=== PATIENT | female | born 1965 | race Caucasian/White ===

== ENCOUNTER 2017-01-05 21:08 | Emergency (ER) | payer BC, MEDICARE ==
--- NOTE | 2017-01-05 21:26 | EDM.PDOC ---
ED HPI GENERAL MEDICAL PROBLEM - General Chief Complaint: Abdominal Pain Stated Complaint: PT HAS STOMACH PAINS Time Seen by Provider: 01/05/17 21:20 Source of Information: Reports: Patient History Limitations: Reports: No Limitations - History of Present Illness INITIAL COMMENTS - FREE TEXT/NARRATIVE: HISTORY AND PHYSICAL: History of present illness: [Patient comes the emergency room complaining of lower abdominal pressure as well as tissue protruding from her vagina. Her period started 2 days ago and is regular. This evening she went to put in a tampon and noticed tissue coming out of her vagina. She is complaining of some lower abdominal cramping and pressure as well as some low back pressure. She's had no fever or chills, nausea or vomiting, and other abdominal pain. No burning with urination urinary frequency or urgency. Bowel movements are normal and without blood. She has not recently been constipated or had to strain to have a bowel movement. Had a tubal ligation approximately 20 years ago. LC2] Review of systems: As per history of present illness and below otherwise all systems reviewed and negative. Past medical history: As per history of present illness and as reviewed below otherwise noncontributory. Surgical history: As per history of present illness and as reviewed below otherwise noncontributory. Social history: No reported history of drug or alcohol abuse. Family history: As per history of present illness and as reviewed below otherwise noncontributory. Physical exam: HEENT: Atraumatic, normocephalic. Lungs: Clear to auscultation, breath sounds equal bilaterally Heart: S1S2, regular rate and rhythm. Abdomen: Soft, nondistended. Mildly tender over suprapubic area. No CVA tenderness. Pelvis: Stable nontender. Genitourinary: Normal-appearing external genitalia. Normal amount of blood present in vaginal vault. Cervix is visualized and without lesions or abnormalities. Increased pressure from anterior vaginal wall during Valsalva maneuver. Rectal: Normal Sphincter tone. No hemorrhoids. Extremities: Atraumatic Neurovascular unremarkable. Neuro: Awake, alert, oriented. Exam nonfocal. Psych: Is anxious and tearful throughout conversation. Impression: [Uterine prolapse] Plan: [Patient is given referral to follow up with [facility]. She is advised to call tomorrow to get scheduled for same-day appointment. Tylenol or ibuprofen as needed for discomfort. She is in agreement with today's plan all of her questions are answered and concerns are addressed.] Definitive disposition and diagnosis as appropriate pending reevaluation and review of above. Lower Abdominal Pain Score (Numeric/FACES): 6 - Related Data Allergies Allergy/AdvReac Type Severity Reaction Status Date / Time droperidol [From Inapsine] Allergy Hallucinati Verified 01/05/17 21:39 ons prochlorperazine Allergy severe Verified 01/05/17 21:16 [From Compazine] anxiety Home Meds: Home Meds Albuterol [Proair HFA] 2 puff INH DAILY 01/05/17 [History] Fluticasone/Salmeterol [Advair 500-50 Diskus] 1 puff INH DAILY 01/05/17 [History ] Lansoprazole [Prevacid] 30 mg PO DAILY 01/05/17 [History] Montelukast [Singulair] 10 mg PO BEDTIME 01/05/17 [History] Roflumilast [Daliresp] 250 mg PO ASDIRECTED 01/05/17 [History] Theophylline 400 mg PO DAILY 01/05/17 [History] Tiotropium [place] [Spiriva Respimat] 2 puff INH DAILY 01/05/17 [History] ED ROS GENERAL - Review of Systems Review Of Systems: ROS reveals no pertinent complaints other than HPI. ED EXAM, GI/ABD - Physical Exam Exam: See Below Course - Vital Signs Last Recorded V/S: Last Vital Signs Temp 97.8 F 01/05/17 21:16 Pulse 109 H 01/05/17 21:16 Resp 20 01/05/17 21:16 BP 150/81 H 01/05/17 21:16 Pulse Ox 93 L 01/05/17 21:16 Departure - Departure Time of Disposition: 22:10 Disposition: Home, Self-Care 01 Condition: Good Clinical Impression: Prolapse of uterus - Discharge Information Referrals: PCP,None [Primary Care Provider] - Forms: ED Department Discharge Additional Instructions: The following information is given to patients seen in the emergency department who are being discharged to home. This information is to outline your options for follow-up care. We provide all patients seen in our emergency department with a follow-up referral. The need for follow-up, as well as the timing and circumstances, are variable depending upon the specifics of your emergency department visit. If you don't have a primary care physician on staff, we will provide you with a referral. We always advise you to contact your personal physician following an emergency department visit to inform them of the circumstance of the visit and for follow-up with them and/or the need for any referrals to a consulting specialist. The emergency department will also refer you to a specialist when appropriate. This referral assures that you have the opportunity for follow-up care with a specialist. All of these measure are taken in an effort to provide you with optimal care, which includes your follow-up. Under all circumstances we always encourage you to contact your private physician who remains a resource for coordinating your care. When calling for follow-up care, please make the office aware that this follow-up is from your recent emergency room visit. If for any reason you are refused follow-up, please contact the [facility] emergency department at and asked to speak to the emergency department charge nurse. [facility] Primary care - Women's Health [address] [place] [phone] Call the clinic at the number listed above tomorrow morning to get scheduled for an appointment. Return to ER as needed as discussed.
[2017-01-06 07:19] VITALS: BP 143/71
== END 2017-01-05 22:26 | disposition home or self-care (01) ==
LOC: MW.ED 21:08
DX: N81.4 Uterovaginal prolapse, unspecified (principal); Z88.8 Allergy status to other drugs, medicaments and biological substances; Z79.899 Other long term (current) drug therapy
CPT/HCPCS: 99282; 99283

== ENCOUNTER 2017-01-22 07:44 | Day surgery (SDC) | payer BC, MEDICARE ==
[2017-01-21 11:01] LABS: CHLORIDE,CL 105 mmol/L (98-110); SODIUM,NA 139 mmol/L (136-146)
[~2017-01-22 07:44] MED LIST: Fluorescein 5 ML Vial ONE; Sodium Chloride 0.9% 10 ML Syringe FLUSH PRN; Sodium Chloride 0.9% 2.5 ML Syringe FLUSH PRN; ceFAZolin 2 GM in Premix Bag 1 BAG IV ONE
[2017-01-22] MEDS ORDERED: Sodium Chloride 0.9% 20 ML ONE (09:14)
[2017-01-22] MEDS ORDERED: Furosemide 40 MG/4 ML VIAL ONE ×2 (09:14→09:36)
[2017-01-22] MEDS ORDERED: ceFAZolin 1 GM Vial ONE (09:14)
[2017-01-22] MEDS: Lactated Ringers 1,000 ML IV SCH ×2 (09:15→21:38)
[2017-01-22] MEDS ORDERED: Fluorescein 5 ML Vial ONE (09:36)
--- NOTE | 2017-01-22 09:56 | PCM.PREANE ---
Preanesthetic Assessment - Anesthesia/Transfusion/Family Hx Anesthesia History: Prior Anesthesia Without Reaction Other Type of Anesthesia Reaction Comment: needs spinal anesthesia due to her lung disease Family History of Anesthesia Reaction: No Transfusion History: No Prior Transfusion(s) Intubation History: Unknown - Review of Systems General: No Symptoms Pulmonary: No Symptoms Cardiovascular: No Symptoms Gastrointestinal: No symptoms Neurological: No Symptoms Other: Reports: None - Physical Assessment Height: 1.7 m Weight: 71 kg ASA Class: 3 Mental Status: Alert & Oriented x3 Airway Class: Mallampati = 2 Dentition: Reports: Normal Dentition Thyro-Mental Finger Breadths: 3 Mouth Opening Finger Breadths: 3 ROM/Head Extension: Full Lungs: Clear to auscultation, Normal respiratory effort, Decreased breath sounds , Crackles Cardiovascular: Regular Rate, Regular Rhythm - Lab Values: Laboratory Last Values WBC 8.68 K/uL (4.0-11.0) 01/21/17 10:07 RBC 4.87 M/uL (4.30-5.90) 01/21/17 10:07 Hgb 15.3 g/dL (12.0-16.0) 01/21/17 10:07 Hct 44.8 % (36.0-46.0) 01/21/17 10:07 MCV 92.0 fL (80.0-98.0) 01/21/17 10:07 MCH 31.4 pg (27.0-32.0) 01/21/17 10:07 MCHC 34.2 g/dL (31.0-37.0) 01/21/17 10:07 RDW Std Deviation 44.2 fl (28.0-62.0) 01/21/17 10:07 RDW Coeff of Mariel 13 % (11.0-15.0) 01/21/17 10:07 Plt Count 251 K/uL (150-400) 01/21/17 10:07 MPV 11.70 fL (7.40-12.00) 01/21/17 10:07 Nucleated RBC % 0.0 /100WBC 01/21/17 10:07 Nucleated RBCs # 0 K/uL 01/21/17 10:07 Sodium 139 mmol/L (136-146) 01/21/17 10:07 Potassium 4.5 mmol/L (3.5-5.1) 01/21/17 10:07 Chloride 105 mmol/L (98-110) 01/21/17 10:07 Carbon Dioxide 25 mmol/L (21-31) 01/21/17 10:07 BUN 20 mg/dL (6.0-23.0) 01/21/17 10:07 Creatinine 0.7 mg/dL (0.6-1.5) 01/21/17 10:07 Est Cr Clr Drug Dosing 90.38 mL/min 01/21/17 10:07 Estimated GFR (MDRD) > 60.0 ml/min 01/21/17 10:07 Glucose 90 mg/dL (60-110) 01/21/17 10:07 Calcium 9.8 mg/dL (8.8-10.8) 01/21/17 10:07 Blood Type A POSITIVE 01/21/17 14:24 Antibody Screen NEGATIVE 01/21/17 14:24 - Allergies Allergies/Adverse Reactions: Allergies Allergy/AdvReac Type Severity Reaction Status Date / Time droperidol [From Inapsine] Allergy Hallucinati Verified 01/05/17 21:39 ons prednisone Allergy Anxiety Verified 01/20/17 11:31 prochlorperazine Allergy severe Verified 01/05/17 21:16 [From Compazine] anxiety - Blood Blood Available: No - Anesthesia Plan Pre-Op Medication Ordered: None - Acknowledgements Anesthesia Type Planned: Spinal Pt an Appropriate Candidate for the Planned Anesthesia: Yes Alternatives and Risks of Anesthesia Discussed w Pt/Guardian: Yes Pt/Guardian Understands and Agrees with Anesthesia Plan: Yes PreAnesthesia Questionnaire HEENT History: Respiratory History: Reports: COPD, Intubation, Previous, PE Other Respiratory History: alpha 1 antitrypsin deficiency; pulmonary [id number], oxygen as needed FEV1 22% of predicted Gastrointestinal History: Reports: GERD Genitourinary History: Reports: None [employer] History: Reports: Musculoskeletal History: Reports: Fracture Other Musculoskeletal History: fx shoulder and leg - Infectious Disease History Infectious Disease History: Reports: Chicken Pox, Measles, Mumps - Past Surgical History Head Surgeries/Procedures: Reports: None Respiratory Surgical History: Reports: None Female Surgical History: Reports: Tubal Ligation Other Musculoskeletal Surgeries/Procedures:: hx surgery for fx leg Dermatological Surgical History: Reports: Other (See Below) (ORIF left lower leg ) - SUBSTANCE USE Smoking Status *Q: Former Smoker (quit 2000) Second Hand Smoke Exposure: No Recreational Drug Use History: No - HOME MEDS Home Medications: Home Meds Albuterol [Proair HFA] 2 puff INH Q4HR PRN 01/05/17 [History] Lansoprazole [Prevacid] 30 mg PO DAILY 01/05/17 [History] Montelukast [Singulair] 10 mg PO BEDTIME 01/05/17 [History] Roflumilast [Daliresp] 500 mcg PO DAILY 01/05/17 [History] Theophylline 300 mg PO DAILY 01/05/17 [History] Tiotropium [place] [Spiriva Respimat] 2 puff INH DAILY 01/05/17 [History] Calcium Citrate/Vitamin D3 [Calcium Citrate + D] 1 tab PO DAILY 01/19/17 [ History] Flaxseed Oil [[place]-3 Flaxseed Oil] 1 tab PO DAILY 01/19/17 [History] Fluticasone Propionate [Flovent] 2 spray NASBOTH DAILY 01/19/17 [History] Mometasone/Formoterol [Dulera 200-5 MCG] 2 puff INH BID 01/19/17 [History] Multivitamin [Multivitamins] 1 tab PO DAILY 01/19/17 [History] Cetirizine HCl [All Day Allergy] 10 mg PO DAILY 01/22/17 [History] - CURRENT (IN HOUSE) MEDS Current Meds: Current Medications Lactated Ringer's (Ringers, Lactated) 1,000 mls @ 125 mls/hr IV ASDIRECTED DARWIN Last Admin: 01/22/17 09:15 Dose: 125 mls/hr Sodium Chloride (Saline Flush) 10 ml FLUSH ASDIRECTED PRN PRN Reason: Keep Vein Open Sodium Chloride (Saline Flush) 2.5 ml FLUSH ASDIRECTED PRN PRN Reason: Keep Vein Open Discontinued Medications Cefazolin Sodium (Ancef) Confirm Administered Dose 2 gm .ROUTE .STK-MED ONE Stop: 01/22/17 09:15 Fluorescein Sodium (Ak-Fluor) Confirm Administered Dose 5 ml .ROUTE .STK-MED ONE Stop: 01/22/17 07:45 Fluorescein Sodium (Ak-Fluor) Confirm Administered Dose 5 ml .ROUTE .STK-MED ONE Stop: 01/22/17 09:37 Furosemide (Lasix) Confirm Administered Dose 40 mg .ROUTE .STK-MED ONE Stop: 01/22/17 09:15 Furosemide (Lasix) Confirm Administered Dose 40 mg .ROUTE .STK-MED ONE Stop: 01/22/17 09:37 Cefazolin Sodium/Dextrose 2 gm (/ Premix) 50 mls @ 100 mls/hr IV ONETIME ONE Stop: 01/21/17 09:46 Sodium Chloride (Normal Saline) Confirm Administered Dose 20 mls @ as directed .ROUTE .STK-MED ONE Stop: 01/22/17 09:15
[2017-01-22] MEDS ORDERED: Midazolam 1 MG/ML 2 ML SDV ONE (10:45)
[2017-01-22] MEDS ORDERED: ePHEDrine 50 MG/ML SDV ONE (10:54)
[2017-01-22] MEDS ORDERED: Ondansetron 4 MG/2 ML SDV ONE (11:04)
[2017-01-22] MEDS ORDERED: Propofol 200 MG/20 ML SDV ONE ×2 (11:25→11:51)
[2017-01-22] MEDS ORDERED: Metoclopramide 10 MG/2 ML SDV ONE (11:33)
[2017-01-22] MEDS ORDERED: diphenhydrAMINE 50 MG/ML SDV ONE (11:33)
[2017-01-22] MEDS ORDERED: Promethazine 25 MG/ML SDV IM PRN (12:36)
[2017-01-22] MEDS ORDERED: Morphine 2 MG/ML Syringe IVPUSH PRN (12:36)
[2017-01-22] MEDS ORDERED: Acetaminophen/oxyCODONE 325-5 MG Tab PO PRN (12:36)
[2017-01-22] MEDS ORDERED: Ondansetron 4 MG/2 ML SDV IVPUSH PRN (12:36)
--- NOTE | 2017-01-22 12:40 | PCM.OPNOTE ---
- General Post-Op/Procedure Note Date of Surgery/Procedure: 01/22/17 Operative Procedure(s): TVH,TVT,pelvic reconstraction and cystoscopy Pre Op Diagnosis: Pelvic relaxation Post-Op Diagnosis: Same Anesthesia Technique: Spinal Primary Surgeon: Pavel Martínez Helper Marble Finisher: Mindy Melendez EBL in mLs: 125 Complications: None Condition: Good
[2017-01-22] MEDS: Ketorolac 30 MG/ML SDV IVPUSH PRN (14:33)
[2017-01-22] MEDS: Meperidine PF 50 MG/ML Syringe IVPUSH PRN ×2 (19:13→23:25)
--- NOTE | 2017-01-22 20:57 | OR ---
SURGEON: Pavel Martínez MD DATE OF PROCEDURE: PREOPERATIVE DIAGNOSIS: Pelvic relaxation. POSTOPERATIVE DIAGNOSIS: Pelvic relaxation. OPERATION PERFORMED: Total vaginal hysterectomy, and repair of pelvic relaxation using Xenform product and Solyx TVT, and cystoscopy. HAND OR MACHINE PASTER: ZENY Vila. ANESTHESIA: Spinal, Kenny Jensen and Dr. Garcia. ESTIMATED BLOOD LOSS: 125 mL. COMPLICATIONS: None. FINDINGS: Pelvic relaxation and prolapse of the uterus. INDICATION: [place] refer to the admit note. PROCEDURE IN DETAIL: The patient was brought to the OR, properly identified, and after adequate level of spinal anesthesia because of her special lung problem, the patient was placed in the stirrup with an access to the vagina and after time-out is taken, and the patient is prepped and draped in sterile fashion as usual, a straight catheter used to empty the bladder and short-weighted speculum was placed in the vagina, and then a single-tooth tenaculum was applied to the cervix, and then using electrocautery, circular incision in the vaginal mucosa around the cervix was done. The posterior cul-de-sac was entered posteriorly and the perineum and the vagina was tacked posteriorly. The short-weighted speculum replaced with an extending long-weighted speculum. Then, the uterosacral ligament was identified from both sides, clamped with a curved Zeppelin, transected, and suture ligated with 2-0 Vicryl pop-off and held for further identification. The same thing done with the cardinal ligament on both sides. Then, the cervical vesicle space was entered anteriorly and the cul-de-sac was entered anteriorly. The broad ligament was clamped with a curved Zeppelin at this time, transected and suture ligated with 2-0 Vicryl pop-off. The uterine vessels were suture ligated at this step. Next step is multiple bites taken in the broad ligament to shorten the superior pedicle and each bites taken were sutured with 2-0 Vicryl. Then, the uterus delivered posteriorly and the superior pedicle is clamped and transected and uterus were removed. The superior pedicle tied 3 times with a free tie. The patient expressed her interest to keep her ovary and at this time, her ovary is really out of reach and because the patient has limited spinal anesthesia, I felt that if we pursue removing her ovary vaginally it could probably create some discomfort for the patient and we may not have adequate anesthesia for that procedure, so I had foregone removing the ovary. Next step is the vaginal cuff was closed with 2-0 Vicryl interrupted figure-of- eight suture after ascertaining all the pedicle dry and there was no vaginal bleeding. Then, attention was paid to the posterior vaginal wall and the posterior vaginal wall was injected with copious amount of normal saline. It was opened from the midline and from the vaginal vault to the introitus and dissected laterally exposing the enterocele and the rectocele. The [place] retractor was used to aid in the exposure. Then with manual and sharp and blunt dissection with a finger, the sacrospinous ligament is identified from both sides using a Capio needle, suture anchor on both sides of the sacrospinous ligament, [place] suture is used, and then the Xenform was cut to fit the defect into form, and then anchored on top of the defect and the vagina is beneath the mucosa. Once that was done, then the graft is tied and anchored to the sacrospinous ligament on both sides is reducing the defect and repaired. Once that was done, then the vaginal cuff posteriorly was closed with 2-0 Vicryl continuous interlocking for hemostasis. Next step is attention was paid to the anterior vaginal wall and copious amount of normal saline was infiltrated beneath the urethra and that for 1.5-inch beneath the urethra is opened with electrocautery and the vaginal mucosa dissected on both sides in a tunneling fashion, pushing, and then Solyx TVT is placed in place to elevate the urethrovesical angle. Once that was done, then the vaginal cuff anteriorly was closed with 2-0 Vicryl continuous interlocking for hemostasis. While we were doing that, we asked the anesthesia people to give the patient fluorescein and cystoscopy was performed. The bladder was intact. Both ureteral orifices were seen with the dye coming from both of them. Thus, the patency of both ureters verified. Satisfied with these findings, vaginal pack was placed in the vagina and [place] catheter was placed for drainage and the procedure ended. The instrument and sponge count was correct. The patient tolerated the procedure well and went to recovery room in stable general condition. CHRISTOPHER / MARCELA /[id number]
[2017-01-23] MEDS: Ketorolac 30 MG/ML SDV IVPUSH PRN ×2 (03:39→10:08)
[2017-01-23 06:13] LABS: CHLORIDE,CL 107 mmol/L (98-110); SODIUM,NA 138 mmol/L (136-146)
[2017-01-23 09:44] VITALS: BP 117/68
--- NOTE | 2017-01-23 10:05 | PCM.SURGPN ---
- General Info POD#: 1 Functional Status: Reports: pain controlled - Review of Systems General: Reports: No Symptoms HEENT: Reports: no symptoms Pulmonary: Reports: no symptoms Cardiovascular: Reports: No Symptoms Gastrointestinal: Reports: No symptoms Genitourinary: Reports: no symptoms Musculoskeletal: Reports: no symptoms Skin: Reports: no symptoms Neurological: Reports: No Symptoms Psychiatric: Reports: no symptoms - Patient Data Vitals - most recent: Last Vital Signs Temp 36.2 C 01/23/17 08:00 Pulse 93 01/23/17 08:00 Resp 16 01/23/17 08:00 BP 117/68 01/23/17 08:00 Pulse Ox 91 L 01/23/17 08:00 Weight - most recent: 71 kg I&O - last 24 hours: Intake & Output 01/22/17 01/23/17 01/23/17 22:59 06:59 14:59 Intake Total 1200 1250 Output Total 450 1450 Balance 750 -200 Lab Results last 24 hrs: Laboratory Results - last 24 hr 01/23/17 01/23/17 Range/Units 05:38 05:38 WBC 8.68 (4.0-11.0) K/uL RBC 3.65 L (4.30-5.90) M/uL Hgb 11.6 L (12.0-16.0) g/dL Hct 34.7 L (36.0-46.0) % MCV 95.1 (80.0-98.0) fL MCH 31.8 (27.0-32.0) pg MCHC 33.4 (31.0-37.0) g/dL RDW Std Deviation 46.9 (28.0-62.0) fl RDW Coeff of Mariel 13 (11.0-15.0) % Plt Count 208 (150-400) K/uL MPV 11.30 (7.40-12.00) fL Neut % (Auto) 75.4 (48.0-80.0) % Lymph % (Auto) 15.2 L (16.0-40.0) % Rogers % (Auto) 8.6 (0.0-15.0) % Eos % (Auto) 0.7 (0.0-7.0) % Baso % (Auto) 0.1 (0.0-1.5) % Neut # (Auto) 6.5 H (1.4-5.7) K/uL Lymph # (Auto) 1.3 (0.6-2.4) K/uL Rogers # (Auto) 0.8 (0.0-0.8) K/uL Eos # (Auto) 0.1 (0.0-0.7) K/uL Baso # (Auto) 0.0 (0.0-0.1) K/uL Nucleated RBC % 0.0 /100WBC Nucleated RBCs # 0 K/uL Sodium 138 (136-146) mmol/L Potassium 3.8 (3.5-5.1) mmol/L Chloride 107 (98-110) mmol/L Carbon Dioxide 27 (21-31) mmol/L BUN 8 (6.0-23.0) mg/dL Creatinine 0.7 (0.6-1.5) mg/dL Est Cr Clr Drug Dosing 90.38 mL/min Estimated GFR (MDRD) > 60.0 ml/min Glucose 148 H (60-110) mg/dL Calcium 8.5 L (8.8-10.8) mg/dL Med Orders - Current: Current Medications Lactated Ringer's (Ringers, Lactated) 1,000 mls @ 125 mls/hr IV ASDIRECTED DARWIN Last Admin: 01/22/17 21:38 Dose: 125 mls/hr Ketorolac Tromethamine (Toradol) 30 mg IVPUSH Q6H PRN PRN Reason: Pain (severe 7-10) Stop: 01/27/17 12:36 Last Admin: 01/23/17 03:39 Dose: 30 mg Meperidine HCl (Demerol) 50 mg IVPUSH Q4H PRN PRN Reason: Pain Last Admin: 01/22/17 23:25 Dose: 50 mg Ondansetron HCl (Zofran) 4 mg IVPUSH Q6H PRN PRN Reason: Nausea/Vomiting Last Admin: 01/22/17 17:50 Dose: 4 mg Oxycodone/Acetaminophen (Percocet 325-5 Mg) 2 tab PO Q4H PRN PRN Reason: Pain (moderate 4-6) Promethazine HCl (Phenergan) 25 mg IM Q6H PRN PRN Reason: Nausea/Vomiting Last Admin: 01/22/17 19:22 Dose: 25 mg Sodium Chloride (Saline Flush) 10 ml FLUSH ASDIRECTED PRN PRN Reason: Keep Vein Open Sodium Chloride (Saline Flush) 2.5 ml FLUSH ASDIRECTED PRN PRN Reason: Keep Vein Open Discontinued Medications Cefazolin Sodium (Ancef) Confirm Administered Dose 2 gm .ROUTE .STK-MED ONE Stop: 01/22/17 09:15 Diphenhydramine HCl (Benadryl) Confirm Administered Dose 50 mg .ROUTE .STK-MED ONE Stop: 01/22/17 11:34 Ephedrine Sulfate (Ephedrine Sulfate) Confirm Administered Dose 50 mg .ROUTE .STK-MED ONE Stop: 01/22/17 10:55 Fluorescein Sodium (Ak-Fluor) Confirm Administered Dose 5 ml .ROUTE .STK-MED ONE Stop: 01/22/17 07:45 Fluorescein Sodium (Ak-Fluor) Confirm Administered Dose 5 ml .ROUTE .ST-MED ONE Stop: 01/22/17 09:37 Furosemide (Lasix) Confirm Administered Dose 40 mg .ROUTE .STK-MED ONE Stop: 01/22/17 09:15 Furosemide (Lasix) Confirm Administered Dose 40 mg .ROUTE .STK-MED ONE Stop: 01/22/17 09:37 Glycopyrrolate () Confirm Administered Dose 1 mg .ROUTE .STK-MED ONE Stop: 01/22/17 10:57 Cefazolin Sodium/Dextrose 2 gm (/ Premix) 50 mls @ 100 mls/hr IV ONETIME ONE Stop: 01/21/17 09:46 Last Admin: 01/22/17 14:41 Dose: Not Given Sodium Chloride (Normal Saline) Confirm Administered Dose 20 mls @ as directed .ROUTE .ST-MED ONE Stop: 01/22/17 09:15 Metoclopramide HCl (Reglan) Confirm Administered Dose 10 mg .ROUTE .STK-MED ONE Stop: 01/22/17 11:34 Midazolam HCl (Versed 1 Mg/Ml) Confirm Administered Dose 2 mg .ROUTE .STK-MED ONE Stop: 01/22/17 10:46 Morphine Sulfate (Morphine) 2 mg IVPUSH Q2H PRN PRN Reason: Pain (severe 7-10) Last Admin: 01/22/17 17:50 Dose: 2 mg Ondansetron HCl (Zofran) Confirm Administered Dose 4 mg .ROUTE .STK-MED ONE Stop: 01/22/17 11:05 Propofol (Diprivan 20 Ml) Confirm Administered Dose 200 mg .ROUTE .STK-MED ONE Stop: 01/22/17 11:26 Propofol (Diprivan 20 Ml) Confirm Administered Dose 200 mg .ROUTE .STK-MED ONE Stop: 01/22/17 11:52 - Exam Wound/Incisions: healing well General: alert, oriented HEENT: Pupils equal Neck: supple Lungs: Clear to auscultation, Normal respiratory effort Cardiovascular: Regular Rate, Regular Rhythm Abdomen: bowel sounds present, soft, no tenderness, no distension Extremities: no edema Skin: warm, dry, intact Neurological: no new focal deficit Psy/Mental Status: alert, normal affect, normal mood - Problem List Review Problem List Initiated/Reviewed/Updated: Yes - My Orders Last 24 Hours: Active Orders 24 hr Category Date Time Status Patient Status [ADT] Routine ADT 01/22/17 12:36 Active Notify Provider Vital Signs [RC] ASDIRECTED Care 01/22/17 12:36 Active RT Incentive Spirometry [RC] Q2HWA Care 01/22/17 12:36 Active Up With Assistance [RC] PER UNIT ROUTINE Care 01/22/17 12:36 Active Up ad Salima [RC] PER UNIT ROUTINE Care 01/22/17 12:36 Active Urinary Catheter Removal [RC] Per Unit Routine Care 01/22/17 12:36 Active Regular Diet [DIET] Diet 01/22/17 Dinner Active Acetaminophen/oxyCODONE [Percocet 325-5 MG] Med 01/22/17 12:36 Active 2 tab PO Q4H PRN Ketorolac [Toradol] Med 01/22/17 12:36 Active 30 mg IVPUSH Q6H PRN Meperidine [Demerol] Med 01/22/17 18:56 Active 50 mg IVPUSH Q4H PRN Ondansetron [Zofran] Med 01/22/17 12:36 Active 4 mg IVPUSH Q6H PRN Promethazine [Phenergan] Med 01/22/17 12:36 Active 25 mg IM Q6H PRN Peripheral IV Discontinue [OM.PC] Routine Oth 01/22/17 12:36 Ordered Sequential Compression Device [OM.PC] Per Unit Routine Oth 01/22/17 12:36 Ordered Resuscitation Status Routine Resus Stat 01/22/17 12:36 Ordered Medication Orders Lactated Ringer's (Ringers, Lactated) 1,000 mls @ 125 mls/hr IV ASDIRECTED DARWIN Last Admin: 01/22/17 21:38 Dose: 125 mls/hr Infusion: 01/22/17 17:15 Dose: 125 mls/hr Admin: 01/22/17 09:15 Dose: 125 mls/hr Ketorolac Tromethamine (Toradol) 30 mg IVPUSH Q6H PRN PRN Reason: Pain (severe 7-10) Stop: 01/27/17 12:36 Last Admin: 01/23/17 03:39 Dose: 30 mg Admin: 01/22/17 14:33 Dose: 30 mg Meperidine HCl (Demerol) 50 mg IVPUSH Q4H PRN PRN Reason: Pain Last Admin: 01/22/17 23:25 Dose: 50 mg Admin: 01/22/17 19:13 Dose: 50 mg Ondansetron HCl (Zofran) 4 mg IVPUSH Q6H PRN PRN Reason: Nausea/Vomiting Last Admin: 01/22/17 17:50 Dose: 4 mg Oxycodone/Acetaminophen (Percocet 325-5 Mg) 2 tab PO Q4H PRN PRN Reason: Pain (moderate 4-6) Promethazine HCl (Phenergan) 25 mg IM Q6H PRN PRN Reason: Nausea/Vomiting Last Admin: 01/22/17 19:22 Dose: 25 mg Sodium Chloride (Saline Flush) 10 ml FLUSH ASDIRECTED PRN PRN Reason: Keep Vein Open Sodium Chloride (Saline Flush) 2.5 ml FLUSH ASDIRECTED PRN PRN Reason: Keep Vein Open - Assessment Assessment (Free Text/Narrative):: doing well
--- NOTE | 2017-01-23 10:06 | PCM.DCSUM1 ---
Discharge Summary - Discharge Data Discharge Date: 01/23/17 Discharge Disposition: Home, Self-Care 01 Condition: Good - Patient Summary/Data Operative Procedure(s) Performed: TVH,TVT,pelvic reconstraction and cystoscopy - Patient Instructions Diet: Usual Diet as Tolerated Activity: As Tolerated Driving: Do Not Drive Showering/Bathing: May Shower Notify Provider of: Fever, Increased Pain, Swelling and Redness, Nausea and/or Vomiting - Discharge Plan Home Medications: Home Meds Albuterol [Proair HFA] 2 puff INH Q4HR PRN 01/05/17 [History] Lansoprazole [Prevacid] 30 mg PO ACBREAKFAST 01/05/17 [History] Montelukast [Singulair] 10 mg PO BEDTIME 01/05/17 [History] Roflumilast [Daliresp] 500 mcg PO DAILY 01/05/17 [History] Theophylline 300 mg PO DAILY 01/05/17 [History] Tiotropium Cordell [Spiriva Respimat] 2 puff INH DAILY 01/05/17 [History] Calcium Citrate/Vitamin D3 [Calcium Citrate + D] 1 tab PO DAILY 01/19/17 [ History] Flaxseed Oil [[place]-3 Flaxseed Oil] 1 tab PO DAILY 01/19/17 [History] Fluticasone Propionate [Flovent] 2 spray NASBOTH DAILY 01/19/17 [History] Mometasone/Formoterol [Dulera 200-5 MCG] 2 puff INH BID 01/19/17 [History] Multivitamin [Multivitamins] 1 tab PO DAILY 01/19/17 [History] Cetirizine HCl [All Day Allergy] 10 mg PO DAILY 01/22/17 [History] Patient Handouts: Ondansetron tablets, Laparoscopically Assisted Vaginal Hysterectomy, Care After Referrals: Pavel Martínez MD [Physician] - 01/30/17 9:30 am - General Info Date of Service: 01/23/17 Functional Status: Reports: pain controlled - Review of Systems General: Reports: No Symptoms HEENT: Reports: no symptoms Pulmonary: Reports: no symptoms Cardiovascular: Reports: No Symptoms Gastrointestinal: Reports: No symptoms Genitourinary: Reports: no symptoms Musculoskeletal: Reports: no symptoms Skin: Reports: no symptoms Neurological: Reports: No Symptoms Psychiatric: Reports: no symptoms - Patient Data Vitals - Most Recent: Last Vital Signs Temp 36.2 C 01/23/17 08:00 Pulse 93 01/23/17 08:00 Resp 16 01/23/17 08:00 BP 117/68 01/23/17 08:00 Pulse Ox 91 L 01/23/17 08:00 Weight - Most Recent: 71 kg I&O - Last 24 hours: Intake & Output 01/22/17 01/23/17 01/23/17 22:59 06:59 14:59 Intake Total 1200 1250 Output Total 450 1450 Balance 750 -200 Lab Results - Last 24 hrs: Laboratory Results - last 24 hr 01/23/17 01/23/17 Range/Units 05:38 05:38 WBC 8.68 (4.0-11.0) K/uL RBC 3.65 L (4.30-5.90) M/uL Hgb 11.6 L (12.0-16.0) g/dL Hct 34.7 L (36.0-46.0) % MCV 95.1 (80.0-98.0) fL MCH 31.8 (27.0-32.0) pg MCHC 33.4 (31.0-37.0) g/dL RDW Std Deviation 46.9 (28.0-62.0) fl RDW Coeff of Mariel 13 (11.0-15.0) % Plt Count 208 (150-400) K/uL MPV 11.30 (7.40-12.00) fL Neut % (Auto) 75.4 (48.0-80.0) % Lymph % (Auto) 15.2 L (16.0-40.0) % Faulkner % (Auto) 8.6 (0.0-15.0) % Eos % (Auto) 0.7 (0.0-7.0) % Baso % (Auto) 0.1 (0.0-1.5) % Neut # (Auto) 6.5 H (1.4-5.7) K/uL Lymph # (Auto) 1.3 (0.6-2.4) K/uL Faulkner # (Auto) 0.8 (0.0-0.8) K/uL Eos # (Auto) 0.1 (0.0-0.7) K/uL Baso # (Auto) 0.0 (0.0-0.1) K/uL Nucleated RBC % 0.0 /100WBC Nucleated RBCs # 0 K/uL Sodium 138 (136-146) mmol/L Potassium 3.8 (3.5-5.1) mmol/L Chloride 107 (98-110) mmol/L Carbon Dioxide 27 (21-31) mmol/L BUN 8 (6.0-23.0) mg/dL Creatinine 0.7 (0.6-1.5) mg/dL Est Cr Clr Drug Dosing 90.38 mL/min Estimated GFR (MDRD) > 60.0 ml/min Glucose 148 H (60-110) mg/dL Calcium 8.5 L (8.8-10.8) mg/dL Med Orders - Current: Current Medications Lactated Ringer's (Ringers, Lactated) 1,000 mls @ 125 mls/hr IV ASDIRECTED DARWIN Last Admin: 01/22/17 21:38 Dose: 125 mls/hr Ketorolac Tromethamine (Toradol) 30 mg IVPUSH Q6H PRN PRN Reason: Pain (severe 7-10) Stop: 01/27/17 12:36 Last Admin: 01/23/17 03:39 Dose: 30 mg Meperidine HCl (Demerol) 50 mg IVPUSH Q4H PRN PRN Reason: Pain Last Admin: 01/22/17 23:25 Dose: 50 mg Ondansetron HCl (Zofran) 4 mg IVPUSH Q6H PRN PRN Reason: Nausea/Vomiting Last Admin: 01/22/17 17:50 Dose: 4 mg Oxycodone/Acetaminophen (Percocet 325-5 Mg) 2 tab PO Q4H PRN PRN Reason: Pain (moderate 4-6) Promethazine HCl (Phenergan) 25 mg IM Q6H PRN PRN Reason: Nausea/Vomiting Last Admin: 01/22/17 19:22 Dose: 25 mg Sodium Chloride (Saline Flush) 10 ml FLUSH ASDIRECTED PRN PRN Reason: Keep Vein Open Sodium Chloride (Saline Flush) 2.5 ml FLUSH ASDIRECTED PRN PRN Reason: Keep Vein Open Discontinued Medications Cefazolin Sodium (Ancef) Confirm Administered Dose 2 gm .ROUTE .STK-MED ONE Stop: 01/22/17 09:15 Diphenhydramine HCl (Benadryl) Confirm Administered Dose 50 mg .ROUTE .[facility]-MED ONE Stop: 01/22/17 11:34 Ephedrine Sulfate (Ephedrine Sulfate) Confirm Administered Dose 50 mg .ROUTE .STK-MED ONE Stop: 01/22/17 10:55 Fluorescein Sodium (Ak-Fluor) Confirm Administered Dose 5 ml .ROUTE .[facility]-MED ONE Stop: 01/22/17 07:45 Fluorescein Sodium (Ak-Fluor) Confirm Administered Dose 5 ml .ROUTE .ST-MED ONE Stop: 01/22/17 09:37 Furosemide (Lasix) Confirm Administered Dose 40 mg .ROUTE .[facility]-MED ONE Stop: 01/22/17 09:15 Furosemide (Lasix) Confirm Administered Dose 40 mg .ROUTE .ST-MED ONE Stop: 01/22/17 09:37 Glycopyrrolate () Confirm Administered Dose 1 mg .ROUTE .[facility] ONE Stop: 01/22/17 10:57 Cefazolin Sodium/Dextrose 2 gm (/ Premix) 50 mls @ 100 mls/hr IV ONETIME ONE Stop: 01/21/17 09:46 Last Admin: 01/22/17 14:41 Dose: Not Given Sodium Chloride (Normal Saline) Confirm Administered Dose 20 mls @ as directed .ROUTE .[facility]-MED ONE Stop: 01/22/17 09:15 Metoclopramide HCl (Reglan) Confirm Administered Dose 10 mg .ROUTE .[facility]-MED ONE Stop: 01/22/17 11:34 Midazolam HCl (Versed 1 Mg/Ml) Confirm Administered Dose 2 mg .ROUTE .[facility]-MED ONE Stop: 01/22/17 10:46 Morphine Sulfate (Morphine) 2 mg IVPUSH Q2H PRN PRN Reason: Pain (severe 7-10) Last Admin: 01/22/17 17:50 Dose: 2 mg Ondansetron HCl (Zofran) Confirm Administered Dose 4 mg .ROUTE .ST-MED ONE Stop: 01/22/17 11:05 Propofol (Diprivan 20 Ml) Confirm Administered Dose 200 mg .ROUTE .STK-MED ONE Stop: 01/22/17 11:26 Propofol (Diprivan 20 Ml) Confirm Administered Dose 200 mg .ROUTE .STK-MED ONE Stop: 01/22/17 11:52 - Exam General: Reports: alert, oriented HEENT: Reports: Pupils equal, Pupils reactive, EOMI, Mucous membr. moist/pink Neck: Reports: supple Lungs: Reports: Clear to auscultation, Normal respiratory effort Cardiovascular: Reports: Regular Rate, Regular Rhythm Abdomen: Reports: bowel sounds present, soft, no tenderness, no distension (Female) Exam: Normal External Exam, Normal Speculum Exam, Normal Bimanual Exam Rectal (Female) Exam: Normal Exam, Normal Rectal Tone Back Exam: Reports: Normal Inspection, Full Range of Motion Extremities: Reports: no edema, normal pulses Skin: Reports: warm, dry, intact Wound/Incisions: Reports: healing well Neurological: Reports: no new focal deficit Psy/Mental Status: Reports: alert, normal affect, normal mood *Q Meaningful Use (DIS) - VTE *Q VTE Criteria *Q: - Stroke *Q Stroke Criteria *Q: - AMI *Q AMI Criteria *Q:
--- NOTE | 2017-01-23 11:06 | PCM.SN ---
- Free Text/Narrative Note: I also in my postoperative visit with this patient informed that there is a small Yueh needle detach accidentally injuring the procedures and lost in her pelvis I showed the patient the needle and I told her this is the same size and equivalent to using a stable during bowel resection and will cause no harm to the patient the patient understand that and she is okay with it
== END 2017-01-23 12:02 | disposition home or self-care (01) ==
LOC: MW.SDS 07:44 → MW.MS 12:36 → MW.SDS 01-23 12:02
PROVIDERS: ATTEND Obstetrics & Gynecology
PROC: 0UT97ZZ Resection of Uterus, Via Natural or Artificial Opening (ICD-10-PCS; principal; 2017-01-22)
PROC: 0UTC7ZZ Resection of Cervix, Via Natural or Artificial Opening (ICD-10-PCS; 2017-01-22)
PROC: 0TSD0ZZ Reposition Urethra, Open Approach (ICD-10-PCS; 2017-01-22)
DX: N80.0 Endometriosis of uterus (principal); D25.9 Leiomyoma of uterus, unspecified; N81.4 Uterovaginal prolapse, unspecified; N81.89 Other female genital prolapse; J44.9 Chronic obstructive pulmonary disease, unspecified; J96.11 Chronic respiratory failure with hypoxia; E88.01 Alpha-1-antitrypsin deficiency; K21.9 Gastro-esophageal reflux disease without esophagitis; Z79.51 Long term (current) use of inhaled steroids; Z79.899 Other long term (current) drug therapy; Z88.8 Allergy status to other drugs, medicaments and biological substances; Z87.891 Personal history of nicotine dependence; Z86.19 Personal history of other infectious and parasitic diseases; Z86.711 Personal history of pulmonary embolism; Z98.51 Tubal ligation status; Z98.890 Other specified postprocedural states
CPT/HCPCS: 36415; 57288; 58260; 80048; 85025; 85027; 86850; 86900; 86901; J0690; J1200; J1885; J1940; J2175; J2250; J2270; J2405; J2550; J2765; J7120; 00944; 88309; C1763; C1781; J2704